=== PATIENT | male | born 1935 | race Caucasian/White ===

== ENCOUNTER 2018-12-17 08:17 | Emergency (ER) | payer MEDICARE, OTHER ==
[2018-12-17 09:02] LABS: ALT (SGPT) 48 U/L (8-55); AST (SGOT) 62 U/L (5-34); Albumin 3.5 g/dL (3.4-4.8); Alkaline Phosphatase 110 U/L (40-150); Anion Gap 13 mmol/L (10-20); BUN (Urea Nitrogen) 13 mg/dL (8.4-25.7); Bilirubin, Total 0.5 mg/dL (0.2-1.2); CK (CPK) 45 U/L (30-200); Calc. Creatinine Clearance 0 mL/min (70-130); Calcium 9.2 mg/dL (7.8-10.44); Carbon Dioxide 31 mmol/L (23-31); Chloride 95 mmol/L (98-107); Estimated GFR-MDRD 89; Globulin 3.4 g/dL (2.4-3.5); Glucose 189 mg/dL (83-110); Lipase 19 U/L (8-78); Potassium 4.2 mmol/L (3.5-5.1); Protein, Total 6.9 g/dL (5.8-8.1); Sodium 135 mmol/L (136-145)
[2018-12-17 09:12] LABS: Band 26 % (5-11); Hemoglobin 13.7 g/dL (14.0-18.0); Lymphocytes 21 % (21-51); MDiff Complete? YES; Mean Corpuscular HGB CONC 31.1 g/dL (32.0-36.0); Mean Corpuscular Hemoglobin 28.4 pg (27.0-31.0); Mean Corpuscular Volume 91.3 fL (78.0-98.0); Mean Platelet Volume 7.3 fL (7.4-10.4); Monocytes 6 % (0-10); Neutrophil 47 % (42-75); Platelet Count 133 thou/uL (130-400); RBC Distribution Width 12.8 % (11.5-14.5); Red Blood Cell (RBC) Count 4.83 mill/uL (4.70-6.10); White Blood Cell (WBC) Count 4.4 thou/uL (4.8-10.8)
[2018-12-17 09:22] LABS: Bilirubin Small (Negative); Blood, Urine Small (Negative); Clarity Clear (Clear); Glucose, Urine (Dipstick) Negative (Negative); Leukocyte Negative (Negative); Nitrite Negative (Negative); Protein, Urine (Dipstick) 100 mg/dL (Neg-Trace); Urobilinogen 0.2 mg/dL (Less than 2)
--- NOTE | 2018-12-17 09:35 | RAD ---
EXAM: Chest PA and lateral: HISTORY: Fever COMPARISON: None FINDINGS: Heart: Normal cardiac silhouette Aorta: Unremarkable Pulmonary vessels: Normal Costophrenic angles: Costophrenic angles are clear. Lungs: Lungs are hyperinflated. Patchy interstitial opacities predominantly lung bases may be due to chronic change. Interstitial infiltrate cannot be excluded. No consolidation with air bronchograms. Pneumothorax: No pneumothorax Osseous structures: No osseous abnormalities IMPRESSION: 1. Hyperinflation. 2. Patchy bibasilar interstitial opacities may be due to chronic change. Superimposed interstitial in filtrate cannot be excluded. Continued surveillance is recommended.
[2018-12-17 09:41] LABS: Bacteria/HPF Rare-Few HPF (None Seen); Squamous Epithelial 0-3 HPF (0-3); WBC/HPF 0-3 HPF (0-3)
--- NOTE | 2018-12-17 09:56 | CT ---
CT Abdomen Pelvis W Con History: Fever. Right lower quadrant pain Comparison: None. Findings: Mild scarring lung bases. Remote right rib fracture. No pericardial effusion. The spleen is abnormal with what appears be a soft tissue mass at the spleni c hilum with thrombus in the splenic vein. There is hypodensity which is somewhat wedge-shaped anterior margin of the spleen. There is very heterogeneous hypodense appearance of the liver. There is a peripheral hepatic segment 7 hypodense mass with increased peripheral enhancement measuring 1 cm. Another hypodense mass within hepatic segment 6 measures 7 mm. Third hypodense hepatic mass segment 5 measures 7 mm with per ipheral enhancement. Small amount of perihepatic fluid. Extensive calcified plaque of the aorta with mild ectasia measurin g up to 2.5 cm. Multiple renal hypodensities measure fluid attenuation. No hydronephrosis. There are small bilateral free fluid in the pelvis. Prostate is markedly enlarged. Advanced facet arthropathy lower lumbar spine. No suspicious osteolytic or osteoblastic lesions. Impression: 1. 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 PET/CT would be beneficial in this patient. Given t he normal pancreatic enzymes according to the ER physician, underlying abscess from prior pancreatitis is felt less likely. 2. Multiple hypodensities of the liver which measure greater than fluid attenuation concerning for me tastasis. This can also be evaluated with PET/CT. 3. Multiple renal cysts. 4. Remote right rib fracture. Code CR
[2018-12-17] MEDS ORDERED: Sodium Chloride 0.9% 100 ML ONE (10:12)
[2018-12-17] MEDS ORDERED: Piperacillin/Tazobactam 4.5 GM VIAL ONE (10:12)
[2018-12-17] MEDS ORDERED: Enoxaparin Sodium 100 MG/ML SYRINGE ONE (10:13)
== END 2018-12-17 10:32 | disposition home or self-care (01) ==
LOC: BURERS 08:17
DX: D73.5 Infarction of spleen (principal); K76.9 Liver disease, unspecified; Z87.891 Personal history of nicotine dependence
CPT/HCPCS: 71046; 74177; 80053; 81003; 81015; 82550; 83605; 83690; 85025; 87040; 93005; 96361; 96365; 96372; J1650; J2543; J3490